=== PATIENT | female | born 1960 | race Caucasian/White ===

== ENCOUNTER 2023-06-30 06:57 | Emergency (ER) | payer BC ==
[~2023-06-30] VITALS: Ht 160 cm; Wt 60.0 kg
[2023-06-30 08:19] VITALS: BP 185/92
== END 2023-06-30 08:22 | disposition home or self-care (01) ==
LOC: ED 06:57
DX: J02.9 Acute pharyngitis, unspecified (principal)
CPT/HCPCS: 87651; 99283